=== PATIENT | male | born 1995 | race Hispanic/Latino ===

== ENCOUNTER 2024-10-05 20:28 | Emergency (ER) | payer SELFPAY ==
--- NOTE | ~2024-10-05 | XR_ITS ---
HISTORY: laceration COMPARISON: None TECHNIQUE: 3 views of the left hand were performed. FINDINGS: No acute fracture is identified. The joint spaces are preserved. The carpal arcs are intact. Bone mineralization is unremarkable. No radiopaque foreign body is identified. IMPRESSION: No acute fracture or dislocation within the left hand, as detailed above. No radiopaque foreign body Reviewed, dictated and finalized at location A. ARCH AIDE
[2024-10-05 20:33] VITALS: BP 130/72; PULSE 93; RESP 20; TEMP 36; O2SAT 98
--- NOTE | 2024-10-05 21:20 | ED.WOUNDLAC ---
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 Tdap utd. Some diminished sensation to the finger. Related Data Allergies Allergy/AdvReac Type Severity Reaction Status Date / Time No Known Allergies Allergy Verified 10/05/24 20:32 Review of Systems Review of Systems: All systems reviewed & are unremarkable except as noted in HPI and below Exam Narrative: EXAMINATION OF ORGAN SYSTEMS/BODY AREAS: Constitutional: Vital signs per nursing GENERAL:[No acute distress, non-toxic appearing.] HEAD: Normal with no signs of head trauma. EYES: EOMI, conjunctiva normal ENT: Hearing grossly intact LUNGS: Nonlabored breathing. HEART: [Regular rate and rhythm] ABD: [Soft], [nontender to palpation] EXT: Normal range of motion SKIN: 3 cm laceration with deep structures intact, left dorsal index finger NEURO: [Alert and oriented x 3. Slight diminished sensation to left index finger which came back full force while patient was being stitched; normal strength and movement of left index finger.] PSYCH: Normal affect Course Vital Signs Vital signs: Vital Signs Temperature 96.8 F L 10/05/24 20:33 Pulse Rate 93 10/05/24 20:33 Respiratory Rate 20 10/05/24 20:33 Blood Pressure 130/72 10/05/24 20:33 Pulse Oximetry 98 10/05/24 20:33 Oxygen Delivery Room Air 10/05/24 20:33 Temperature 96.8 F L 10/05/24 20:33 Pulse Rate 93 10/05/24 20:33 Respiratory Rate 20 10/05/24 20:33 Blood Pressure 130/72 10/05/24 20:33 Pulse Oximetry 98 10/05/24 20:33 Oxygen Delivery Room Air 10/05/24 20:33 Procedures Laceration Laceration 1: Date: 10/05/24 Site: hand Side (If applicable): left Size (cm): 3 Description: linear Depth: simple, single layer Local Anesthetic: lidocaine 1% Amount of anesthesia used (mL): 2 Pre-repair: wound explored, irrigated, irrigated extensively and deep structures intact ====== Skin Level ====== Skin layer closed with: vicryl Size (cm): 4-0 Number of sutures: 5 Technique: simple, interrupted ====== Subcutaneous Layer ====== ====== Muscle Layer ====== ====== Tendon Layer ====== MDM - Wound/Laceration MDM Narrative Medical decision making narrative: Patient presents with a hand saw injury with laceration to left index finger, on exam cut does appear shallow, x-ray obtained does not show any acute fracture thankfully, wound is cleaned with saline at bedside and under tap water for about 5 minutes, then with povidone/iodine and closed and given how dirty the situation was I will start him on antibiotics. Tetanus is up-to-date. Return precautions discussed, follow-up to PCP as needed, patient agreeable to plan Discharge Plan Discharge Clinical Impression: Laceration Patient Disposition: Home, Self-Care Condition: Stable Instructions: Antibiotic Form, Care For Your Stitches (ED) Additional Instructions: Please follow-up with a primary care doctor, your stitches should dissolve on its own, but you can always come back to the hospital for any further issues. Patient Language: Welsh Prescriptions: New cephalexin 500 mg capsule 500 mg PO Q12H 5 Days Qty: 10 0RF Follow-up/Referrals: UNKNOWN,DOCTOR [Primary Care Provider] -
--- OUTSIDE RECORDS SUMMARY | 2024-10-05 21:57 | XMS_ITS | Clinical Summary ---
Author Organization [facility] Address [address] [place] [address] Care Team Providers Care Manager Apple Name Role Phone None, Pcp Primary Care Provider Unavailabl e Comp, Workers Unavailable Unavailable Allergies Active Allergy Reactions Criticality Noted Date Comments Milk Unknown 03/01/2021 Medications methocarbamol (Robaxin-750) 750 mg tablet Take 1 tablet (750 mg total) by mouth 4 (four) times a day for 10 days. 40 tablet 01/31/2021 Active Active Problems Patient Care Coordination No te Formatting of this note is d ifferent from the original. We wanted to inform you that this claim has been settled, please cancel all upcoming appt.'s. Thank you, Myra [email or web address] Assistant [phone] x [phone]? [phone] F WC / DOI: 01/31/2021 Bilat Shoulder , CLAIM#: [id number] Adj: Stephen Ross P: [phone] Ext. [phone] F: [phone] Problem Noted Date Diagnosed Date Abrasion of right forearm 01/31/2021 Abrasion of left eye 01/31/2021 Hypokalemia 01/31/2021 Hyperglycemia 01/31/2021 Immunizations Name Administration Dates Next Due Influenza, Unspecified (CVX 88) 08/27/2021 Family History Medical History Relation Name Comments No Known Problems Father No Known Problems Mother Relation Name Status Comments Father Mother Social History Tobacco Use Types Packs/Day Years Used Date Smoking Tobacco: Every Day Smokeless Tobacco: Never Alcohol Use Standard Drinks/Week Comments Never 0 (1 standard drink = 0.6 oz pur e alcohol) Caregiver Education and Work Answer Shay e Recorded Opt Out of Tobacco Outreach No 01/04 Opt Out of Tobacco Outreach No 01/04 Safety and Environment Answer Date Benny rded Opt Out of Tobacco Outreach No 01/04 Opt Out of Tobacco Outreach No 01/04 Opt Out of Tobacco Outreach No 01/04 Opt Out of Tobacco Outreach No 01/04 Caregiver Health Answer Date Recorded Opt Out of Tobacco Outreach No 01/04 Opt Out of Tobacco Outreach No 01/04 Opt Out of Tobacco Outreach No 01/04 Child Education Answer Date Recorded Opt Out of Tobacco Outreach No 01/04 Opt Out of Tobacco Outreach No 01/04 Opt Out of Tobacco Outreach No 01/04 Adolescent Substance Use Answer Date Re corded Opt Out of Tobacco Outreach No 01/04 Opt Out of Tobacco Outreach No 01/04 Opt Out of Tobacco Outreach No 01/04 [place] Short Social Needs Screening - Social Connect ion Answer Date Recorded Would you like help with any of the following needs: food, medicine/medical supplies, transportation, loneliness, housing or utilities? Not on file 12/16/2023 [place] IP CRAFFT Adolescent Substance Use Answer Date Recorded CRAFFT Screening: Is the pat ient 12 years or older and able to complete Substance Abuse Screening? Not on file 12/16/2023 Last CRAFFT Score: Flowsheet Data Not on file 12/16/2023 Sex and Gender Information Value Date Recorded Sex Assigned at Not on file Legal Sex Male 4:05 PM EDT Gender Identity Not on file Sexual Orientation Not on file Last Filed Vital Signs Vital Sign Reading Time Taken Comments Blood Pressure 125/64 01/31/2021 9:00 PM EDT Pulse 64 01/31/2021 8:45 PM EDT Temperature 36.9 C (98.5 F) 01/31/2021 4:19 PM EDT Respiratory Rate 20 01/31/2021 8:45 PM EDT Oxygen Saturation 97% 01/31/2021 5:00 PM EDT Inhaled Oxygen Concentration - - Weight 90.7 kg (200 lb) 11/29/2021 8:07 AM EDT Height 172.7 cm (5' 8 ) 11/29/2021 8:07 AM EDT Body Mass Index 30.41 11/29/2021 8:07 AM EDT Plan of Treatment Health Maintenance Due Date Last Done Comments HIV Screening 1993 Hepatitis C Screening 1993 PHQ 2005 Varicella Vaccines (1 of 2 - 13+ 2-dose series) 2006 Pneumococcal Vaccine: Pediatrics (0 to 5 Years) and At-Risk Patients (6 to 49 Years) (1 of 2 - PCV) 2012 COVID-19 Vaccine (3 - Pfizer risk series) 04/28/2021 03/31/2021, 03/10/2021 Influenza Vaccine (#1) 2024 , 05/21/2021, 06/12/2010, Additional history exists DTaP,Tdap,and Td Vaccines (9 - Td or Tdap) 06/12/2032 06/12/2022, 11/27/2020, 03/07/2006, Additional history exists RSV women or 60 years and older (1 - 1-dose 75+ series) 2068 HIB Vaccines Completed 02/14/1997, 11/03, 06/10/1994, Additional history exists Hepatitis B Vaccines Completed 02/14/1997, 11/25/1994, 06/10/1994 MMR Vaccines Completed 04/11/1997, 02/14/1997 IPV Vaccines Completed 04/11/1999, 11/03, 06/10/1994, Additional history exists Hepatitis A Vaccines Completed 02/07/2009, 03/07/20 Meningococcal ACWY Completed 09/04/2011, 02/07/2009 Diabetes Screening Discontinued 01/31/2021 HPV Vaccines Aged Out No longer eligi ble based on patient's age to complete this topic RSV patients under 20 months Aged Out No longer eligible based on patient's age to complete this topic Procedures Procedure Name Priority Date/Time Associated Diagnosis Comments BASIC METABOLIC PANEL Routine 01/31/2021 4:20 PM EDT from Last 3 Months or Most Recently Relevant to Health Maintenance Results * (ABNORMAL) Basic metabolic panel (01/31/2021 4:20 PM EDT) Sodium 139 136 - 145 mmol/L LAB CHEMISTRY METHOD 01/31/2021 5:00 PM EDT ORM LAB Potassium 3.4(L) 3.5 - 5.1 mmol/L LAB CHEMISTRY METHOD 01/31/2021 5:00 PM EDT ORM LAB Chloride 104 98 - 107 mmol/L LAB CHEMISTRY METHOD 01/31/2021 5:00 PM EDT ORM LAB CO2 28 21 - 31 mmol/L LAB CHEMISTRY METHOD 01/31/2021 5:00 PM EDT ORM LAB Glucose 146(H) 65 - 100 mg/dL LAB CHEMISTRY METHOD 01/31/2021 5:00 PM EDT ORM LAB BUN 12 7 - 25 mg/dL LAB CHEMISTRY METHOD 01/31/2021 5:00 PM EDT ORM LAB Creatinine 0.95 0.70 - 1.30 mg/dL LAB CHEMISTRY METHOD 01/31/2021 5:00 PM EDT ORM LAB BUN/Creatinine Ratio 12.6 7.3 - 21.7 LAB CHEMISTRY METHOD 01/31/2021 5:00 PM EDT ORM LAB Calcium 9.1 8.6 - 10.3 mg/dL LAB CHEMISTRY METHOD 01/31/2021 5:00 PM EDT ORM LAB Osmolality Calc 288 280 - 300 mOs/kg LAB CHEMISTRY METHOD 01/31/2021 5:00 PM EDT ORM LAB Anion Gap 7 2 - 12 mmol/L LAB CHEMISTRY METHOD 01/31/2021 5:00 PM EDT ORM LAB eGFR 115 >=60 mL/min LAB CHEMISTRY METHOD 01/31/2021 5:00 PM EDT ORM LAB Comment: Patient Race unknown - Both eGFRs calculated. This value is for eGFR - . GFR ranges: A GFR of 60 or higher is in the normal range. A GFR below 60 may mean kidney disease. A GFR of 15 or lower may mean kidney failure. Below shows the five stages of CKD with ICD-10 code and GFR for each stage: N18.1 Stage 1: With normal or high GFR (GFR > 90 mL/min) N18.2 Stage 2: Mild CKD (GFR = 60-89 mL/min) N18.3 Stage 3A: Moderate CKD (GFR = 45-59 mL/min) N18.3 Stage 3B: Moderate CKD (GFR = 30-44 mL/min) N18.4 Stage 4: Severe CKD (GFR = 15-29 mL/min) N18.5 Stage 5: End Stage CKD (GFR <15 mL/min) GFR ranges: A GFR of 60 or higher is in the normal range. A GFR below 60 may mean kidney disease. A GFR of 15 or lower may mean kidney failure. Below shows the five stages of CKD with ICD-10 code and GFR for each stage: N18.1 Stage 1: With normal or high GFR (GFR > 90 mL/min) N18.2 Stage 2: Mild CKD (GFR = 60-89 mL/min) N18.3 Stage 3A: Moderate CKD (GFR = 45-59 mL/min) N18.3 Stage 3B: Moderate CKD (GFR = 30-44 mL/min) N18.4 Stage 4: Severe CKD (GFR = 15-29 mL/min) N18.5 Stage 5: End Stage CKD (GFR <15 mL/min) eGFR 95 mL/min LAB CHEMISTRY METHOD 01/31/2021 5:00 PM EDT ORM LAB Comment: Patient Race unknown - Both eGFRs calculated. This value is for eGFR - Not . GFR ranges: A GFR of 60 or higher is in the normal range. A GFR below 60 may mean kidney disease. A GFR of 15 or lower may mean kidney failure. Below shows the five stages of CKD with ICD-10 code and GFR for each stage: N18.1 Stage 1: With normal or high GFR (GFR > 90 mL/min) N18.2 Stage 2: Mild CKD (GFR = 60-89 mL/min) N18.3 Stage 3A: Moderate CKD (GFR = 45-59 mL/min) N18.3 Stage 3B: Moderate CKD (GFR = 30-44 mL/min) N18.4 Stage 4: Severe CKD (GFR = 15-29 mL/min) N18.5 Stage 5: End Stage CKD (GFR <15 mL/min) Blood Venous blood specimen / Unknown Venipuncture / Unknown 01/31/2021 4:20 PM EDT 01/31/2021 4:28 PM EDT us Vickie Ayala MD LAB BLOOD ORDERABLES Final Res ult OR LAB [address] [place] [address], from Last 3 Months or Most Recently Relevant to Health Maintenance Care Teams Manager Apple Relationship Specialty Start Date End Date None, Pcp NONE PCP - General 01/31/21 Comp, Workers Orthopaedic Surgery 01/31/21
[2024-10-05] MEDS: CEPHALEXIN 500 MG CAPSULE PO (22:03)
== END 2024-10-05 22:10 | disposition home or self-care (01) ==
LOC: ANHED 21:55
PROVIDERS: Emergency Provider Emergency Medicine
DX: S61.211A Laceration without foreign body of left index finger without damage to nail, initial encounter (principal); W27.0XXA Contact with workbench tool, initial encounter
CPT/HCPCS: 12002; 73130; 99283; A9270